=== PATIENT | male | born 1950 | race Caucasian/White ===

== ENCOUNTER 2018-08-24 13:40 | Emergency (ER) | payer OTHER, MEDICAID ==
[~2018-08-24] VITALS: Ht 152.4 cm; Wt 59.0 kg
--- NOTE | 2018-08-24 13:50 | NUR ---
PT TAKEN TO BED 3 IN WHEELCHAIR
[2018-08-24 13:52] VITALS: BP 95/62
--- NOTE | 2018-08-24 14:01 | NUR ---
68 YO M BROUGHT IN BY OPENER S/P FALL FROM BED THIS MORNING; LEFT EYE ECCHYMOSIS AND UPPER LIP SWELLING. NO BLEEDING NOTED. DETENTION WANTED HIM TO HAVE A MEDICAL EVALUATION. NO EYE INJURY NOTED, NO HYPHEMA NOTED, OR GLOBAL INJURY. NO TOOTH INJURY. NO LOC. NO N/V. NEURO TO PT BASELINE, AWAKE AND ALERT. RR EVEN AND UNLABORED, LUNGS BL CLEAR. ABD SOFT, NON-TENDER. BOWEL SOUNDS ACTIVE X 4. PT IN WHEELCHAIR. CAREGIVER AT BEDSIDE. ER MD NOTIFIED OF PT STATUS. PT NEEDS MET, SAFETY PRECAUTIONS IN PLACE. WILL CONTINUE TO MONITOR.
[2018-08-24 15:24] VITALS: BP 95/62
--- NOTE | 2018-08-24 15:25 | NUR ---
Patient discharged with v/s stable. Written and verbal after care instructions given and explained. Patient alert, oriented and verbalized understanding of instructions. Wheel Chair Assisted with to car. All questions addressed prior to discharge. ID band removed. Patient advised to follow up with PMD. Rx of MOTRIN given. Patient educated on indication of medication including possible reaction and side effects. Opportunity to ask questions provided and answered.
== END 2018-08-24 15:25 | disposition home or self-care (01) ==
LOC: MED 13:40
DX: S00.12XA Contusion of left eyelid and periocular area, initial encounter (principal); S00.531A Contusion of lip, initial encounter; K21.9 Gastro-esophageal reflux disease without esophagitis; I10 Essential (primary) hypertension; Z90.49 Acquired absence of other specified parts of digestive tract; W18.30XA Fall on same level, unspecified, initial encounter; Y93.89 Activity, other specified; Y92.89 Other specified places as the place of occurrence of the external cause; Y99.8 Other external cause status
CPT/HCPCS: 99282

== ENCOUNTER 2019-04-07 10:36 | Inpatient (IN) | payer OTHER, MEDICAID ==
[~2019-04-07] VITALS: Ht 157.5 cm; Wt 65.8 kg
[2019-04-07 10:43] VITALS: BP 101/58
--- NOTE | 2019-04-07 10:50 | NUR ---
BIB CAREGIVER FROM [facility] WITH. PT IS HERE FOR WOUND CHECK TO BACK OF RIGHT THIGH. PER CAREGIVER, PT'S WOUND STARTED A PIMPLE TYPE SIZE X3 WEEKS AGO, PT HAS A DAILY WOUND CARE AT THE FACILITY AND PT WAS ON ANTIBIOTIC THERAPY, KEFLEX 500 MG Q8 X 7 DAYS (STARTED ON: 03/17/2019). PT WOUND IS APPROX 1.0 INCH X 1 INCH X0.3 INCH, PINK AND SOME SLOUGH NOTED TO WOUND BASE, ERYTHEMA NOTED TO PERIWOUND, NO DRAINAGE NO FOUL ODOR NOTED. ER TO EVALUATE PT.
--- NOTE | 2019-04-07 10:50 | NUR ---
Patient ambulated to bed 2. RN evaluating patient at bedside.
--- NOTE | 2019-04-07 11:00 | NUR ---
DR FAJARDO AT BEDSIDE FOR PT EVALUATION
--- NOTE | 2019-04-07 12:29 | NUR ---
Wound care nurse at bedside.
--- NOTE | 2019-04-07 12:47 | NUR ---
PER 'S REQUEST WOUND EVALUATION DONE TO RIGHT POSTERIOT THIGHT. HX OBTAINED FROM [facility] RN THAT PT HAS ABSCESS WITH S/P I&D 04/06/2019 BY FACILITY WOUND CARE DOCTOR WHO VISIT WEEKLY, ACCORDING TO JENNIFER WHO IS THE CRISIS INTERVENTION COUNSELOR AT BEDSIDE AT THIS TIME THAT NO ONE IS AVAILABLE TO PROVIDE WOUND CARE AT FACILITY DAILY. ALL ABOVE INFORMATION DISCUSSED WITH DR. CLARKE WITH RECOMMENDATIONS GIVEN. -RIGHT POSTERIOR THIGH SURGICAL WOUND S/P I&D 3X3.5X0.3CM WITH UNDERMINING FROM 2 O'CLOCK TO 5 O'CLOCK, WOUND BED IS 100% GRANULATING WITH WOUND EDGE 10% LIGHT YELLOW SLOUGH, MOIST NO ODOR, SONNY-WOUND SKIN INTACT. NO PAIN RECOMMENDATIONS: -CLEANSE RIGHT POSTERIOR THIGH SURGICAL WOUND WITH NS. PAT DRY, PACK WOUND WITH THERAHONEY DRESSING COVER WITH DRY DRESSING QD AND PRN IF SOILING. -KEEP AREA DRY AND CLEAN -MAY HAVE BUS TRANSPORTATION MANAGER TO ASSIST OUT PATIENT CLINIC FOR DAILY WOUND CARE.
--- NOTE | 2019-04-07 13:00 | NUR ---
PT CONVERSATING APPROPRIATELY. NO SIGNS AND SYMPTOMS OF DISTRESS NOTED. EVEN AND UNLABORED BREATHING. CAREGIVERS AT BEDSIDE
[2019-04-07] MEDS ORDERED: POTA8TER12 PO (13:46)
[2019-04-07] MEDS ORDERED: FOLI1TAB90 PO (13:46)
[2019-04-07] MEDS ORDERED: LISI5TAB18 PO (13:46)
[2019-04-07] MEDS ORDERED: CHOL400T7 PO (13:46)
[2019-04-07] MEDS ORDERED: MULT-405 PO (13:46)
[2019-04-07] MEDS ORDERED: ZAR2.5 PO (13:46)
[2019-04-07] MEDS ORDERED: CARB15DR61 OT (13:46)
[2019-04-07] MEDS ORDERED: CHLO1SOL1 XX (13:46)
[2019-04-07] MEDS ORDERED: [UNRECOGNIZED DRUG - CODE] PO (13:46)
[2019-04-07] MEDS ORDERED: SYN.05 PO (13:46)
[2019-04-07] MEDS ORDERED: ALEN70TA9 PO (13:46)
[2019-04-07] MEDS ORDERED: BUME1TAB92 PO (13:46)
[2019-04-07] MEDS ORDERED: OMEP20TC12 PO (13:46)
[2019-04-07] MEDS ORDERED: BACL10TA4 PO (13:46)
[2019-04-07] MEDS ORDERED: CALC-577 PO (13:46)
[2019-04-07] MEDS ORDERED: PHEN-1438 PO (13:46)
[2019-04-07] MEDS ORDERED: ORE25 PO (13:46)
[2019-04-07] MEDS ORDERED: PB97.2 PO (13:46)
[2019-04-07] MEDS ORDERED: BISA-246 RC (13:51)
[2019-04-07] MEDS ORDERED: IBUP-1842 PO (13:51)
[2019-04-07] MEDS ORDERED: MAGN400S60 PO (13:51)
[2019-04-07] MEDS ORDERED: NA P133E RC (13:51)
[2019-04-07] MEDS ORDERED: MYCC TP (13:51)
[2019-04-07] MEDS ORDERED: CARB15SO23 OP (13:51)
[2019-04-07] MEDS ORDERED: ACET-2619 PO (13:53)
[2019-04-07] MEDS ORDERED: DEXT118S47 PO (13:53)
[2019-04-07] MEDS ORDERED: DEXT 5% /NACL 0.9% 1,000 ML IV SCH (13:56)
--- NOTE | 2019-04-07 14:00 | NUR ---
PT FULL CLEAR SPEECH. CONVERSATING APPROPRIATELY. EVEN AND UNLABORED BREATHING. CAREGIVERS AT BEDSIDE
[2019-04-07 14:34] LABS: BASOPHILS # (AUTO) 0.1 K/uL (0.00-0.22); BASOPHILS % (AUTO) 0.7 % (0.0-2.0); EOSINOPHILS # (AUTO) 0.3 K/uL (0-0.4); EOSINOPHILS % (AUTO) 3.8 % (0.0-4.0); HEMATOCRIT 34.6 % (36-52); HEMOGLOBIN 11.7 g/dL (12.0-18.0); LYMPHOCYTES # (AUTO) 3.2 K/uL (2.0-11.5); LYMPHOCYTES % (AUTO) 35.6 % (20.5-51.1); MEAN CORPUSCULAR HEMOGLOBIN 33 pg (27-31); MEAN CORPUSCULAR HGB CONC 34 g/dL (33-37); MONOCYTES # (AUTO) 0.8 K/uL (0.8-1.0); MONOCYTES % (AUTO) 9.1 % (1.7-9.3); NEUTROPHILS # (AUTO) 4.6 K/uL (1.8-7.7); NEUTROPHILS % (AUTO) 50.8 % (42.2-75.2); PLATELET COUNT (AUTO) 443 K/uL (140-450); RED BLOOD CELL COUNT(AUTO) 3.53 MIL/uL (4.20-6.10); RED CELL DISTRIBUTION WIDTH 12.7 % (11.6-13.7)
--- NOTE | 2019-04-07 14:40 | NUR ---
Patient will be admitted to care of DR FOSS. Admited to MED SURG. Will go to room 110 B. Belongings list completed. Report to ESTHER SHETTY.
[2019-04-07 14:56] LABS: ALBUMIN 3.7 g/dL (3.4-5.0); ANION GAP 9.3 (8-16); CARBON DIOXIDE 33.3 mmol/L (21-32); CREATININE 1.7 mg/dL (0.7-1.3); POTASSIUM 3.6 mmol/L (3.5-5.1); TOTAL BILIRUBIN 0.3 mg/dL (0.0-1.0)
[2019-04-07 15:00] VITALS: BP 95/60
[2019-04-07 15:00] LABS: PROTHROMBIN TIME 9.7 secs (10.8-13.4)
[2019-04-07 15:06] LABS: CHOL/HDL RATIO 3.5 (1-4.5); FREE T4 (FREE THYROXINE) 0.83 ng/dL (0.76-1.46); THYROID STIMULATING HORMONE 1.9 uIU/mL (0.34-3.74)
--- NOTE | 2019-04-07 15:15 | NUR ---
RECEIVED PT FROM SENA, WHO GOT REPORT FROM THE ER NURSE. PT IS AWAKE BUT CONFUSED, TALKING A LOT BUT NOT MAKING MUCH SENSE; LEAD REFINERY SUPERVISOR IS AT BEDSIDE. PT IS ON ROOM AIR, NO S/S OF ACUTE DISTRESS. ABCESS WOUND NOTED ON THE BACK OF THE R THIGH, DR LANZA IS AT BEDSIDE TALKING WITH PT AND LEAD REFINERY SUPERVISOR. HE WILL ORDER A WOUND CARE EVAL AND SURGERY EVAL WITH DR FULTON. PT'S BLE'S ARE EDEMATOUS, NON-PITTING. MRSA NASAL SWAB TAKEN. FALL PRECAUTIONS ARE IN PLACE, CALL LIGHT WITHIN REACH. SEIZURE PRECAUTIONS IN PLACE. WILL CONTINUE TO MONITOR.
[2019-04-07 15:59] LABS: MAGNESIUM 2.4 mg/dL (1.8-2.4)
[2019-04-07] MEDS: NACL 0.9% 1,000 ML IV SCH (17:38)
[2019-04-07] MEDS ORDERED: NACL 0.9% 500 ML IV ONE (18:00)
--- NOTE | 2019-04-07 19:20 | NUR ---
ENDORSED PT TO FINGER WAVER NURSE IN STABLE CONDITION.
--- NOTE | 2019-04-07 19:30 | NUR ---
Patient's Plan of Care was discussed and reviewed with ROCKET MOTOR MECHANIC: JASMYNE
[2019-04-07 20:00] VITALS: BP 115/54
--- NOTE | 2019-04-07 20:30 | NUR ---
AWAKE IN BED, TALKING TO SELF.
[2019-04-07] MEDS: AMPICILLIN/SULBACTAM 1.5 GM in NACL 0.9% 50 ML IV SCH (21:40)
[2019-04-07] MEDS ORDERED: AMPICILLIN/SULBACTAM 1.5 GM VIAL ONE (22:16)
--- NOTE | 2019-04-07 23:00 | NUR ---
AWAKE, TALKING TO NOBODY. NO ATTEMPT TO GET OUT OF BED.
--- NOTE | 2019-04-08 01:00 | NUR ---
CLEANSED WOUND WITH NS PAT DRY AND APPLIED GAUZE DRESSING.
[2019-04-08] MEDS ORDERED: MELATONIN 3 MG TAB PO PRN (01:35)
--- NOTE | 2019-04-08 02:20 | NUR ---
UNABLE TO SLEEP, MEDICATED WITH MELATONIN ORDERED.
--- NOTE | 2019-04-08 03:20 | NUR ---
SLEEPING COMFORTABLY IN BED.
[2019-04-08 04:00] VITALS: BP 98/55
[2019-04-08] MEDS: NACL 0.9% 1,000 ML IV SCH ×2 (05:35→16:39)
[2019-04-08] MEDS: AMPICILLIN/SULBACTAM 1.5 GM in NACL 0.9% 50 ML IV SCH ×3 (05:38→21:30)
[2019-04-08 06:11] LABS: T4 (THYROXINE) 6.5 ug/dL (4.5-12.0)
--- NOTE | 2019-04-08 07:00 | NUR ---
STILL SLEEPING IN BED, CONDITION REMAIN STABLE. WILL ENDORSED TO AM NURSE FOR CONTINUITY OF CARE.
--- NOTE | 2019-04-08 07:15 | NUR ---
RECEIVED BEDSIDE REPORT FROM AREA OPERATIONS DIRECTOR NURSE. PATIENT IS AWAKE AND RESTING ON BED AT THIS TIME. PATIENT IS AAOX1. RESPIRATION EVEN AND UNLABORED ON RA. FLACC 0. NO SIGNS OF DISTRESS NOTED. IV ON RAC 20, CLEAN AND DRY, INFUSING PER MD ORDER. WOUND ON RIGHT POSTERIOR THIGH NOTED, DRESSING CLEAN AND DRY. PATIENT IS INCONTINENT AND ON FALL PRECAUTION, BED ALARM ACTIVATED. SEIZURE PRECAUTION AND ASPIRATION PRECAUTION IN PLACE. SAFETY MEASURES IN PLACE. BED IN LOW POSITION AND CALL LIGHT WITHIN REACH.
[2019-04-08] MEDS: LEVOTHYROXINE 0.025 MG TAB PO SCH (07:23)
[2019-04-08 07:34] LABS: ANION GAP 11.9 (8-16); CREATININE 1.3 mg/dL (0.7-1.3); POTASSIUM 3.9 mmol/L (3.5-5.1)
[2019-04-08 07:37] LABS: BASOPHILS # (AUTO) 0.1 K/uL (0.00-0.22); BASOPHILS % (AUTO) 0.8 % (0.0-2.0); EOSINOPHILS # (AUTO) 0.4 K/uL (0-0.4); HEMOGLOBIN 11.1 g/dL (12.0-18.0); LYMPHOCYTES # (AUTO) 2.8 K/uL (2.0-11.5); LYMPHOCYTES % (AUTO) 41.2 % (20.5-51.1); MEAN CORPUSCULAR HEMOGLOBIN 34 pg (27-31); MEAN CORPUSCULAR HGB CONC 35 g/dL (33-37); MEAN CORPUSCULAR VOLUME 97.5 fL (80-94); MONOCYTES # (AUTO) 0.7 K/uL (0.8-1.0); NEUTROPHILS # (AUTO) 2.9 K/uL (1.8-7.7); PLATELET COUNT (AUTO) 405 K/uL (140-450); RED BLOOD CELL COUNT(AUTO) 3.29 MIL/uL (4.20-6.10); RED CELL DISTRIBUTION WIDTH 12.6 % (11.6-13.7); WHITE BLOOD COUNT (AUTO) 6.9 K/uL (4.8-10.8)
[2019-04-08 08:00] VITALS: BP 97/65
[2019-04-08] MEDS ORDERED: PHENobarbital 30 MG TAB PO SCH (09:00)
--- NOTE | 2019-04-08 09:11 | NUR ---
PATIENT HAS BEEN SCREENED AND CATEGORIZED HIGH NUTRITION RISK. PATIENT WILL BE SEEN WITHIN 1-2 DAYS OF ADMISSION. 04/08/19-04/09/[address]
[2019-04-08 09:12] LABS: TRANSFERRIN 218 mg/dL (200-370)
[2019-04-08] MEDS: PHENobarbital 30 MG TAB PO SCH (09:27)
[2019-04-08] MEDS: PANTOPRAZOLE 40 MG TABEC PO SCH (09:27)
--- NOTE | 2019-04-08 09:30 | NUR ---
DR BLAIR IS TALKING TO PATIENT AND CONSERVATOR YAZAN AT BEDSIDE. PATIENT AWAKE AND SITTING UP ON BED AT THIS TIME. ADMINISTERED MEDS PER MD ORDER, PATIENT TOLERATED WELL. NO SIGNS OF DISTRESS NOTED. SAFETY MEASURES IN PLACE. BED IN LOW POSITION AND CALL LIGHT WITHIN REACH. INSTRUCTED PATIENT TO USE THE CALL LIGHT FOR ANY ASSISTANCE AND PATIENT WAS AWARE.
--- NOTE | 2019-04-08 10:09 | NUR ---
COLLECTED URINE SPECIMEN VIA VOID PER MD ORDER AND DELIVERED IT TO LAB.
--- NOTE | 2019-04-08 11:17 | NUR ---
SPOKE TO DR BLAIR AND EXPLAINED THAT PT. WAS SEEN AND EVALUATED YESTERDAY AT ED WITH RECOMMENDATIONS DR. BLAIR AGREEABLE WITH PLAN AND WILL CHECK/ENTER ORDERS. Addendum: 04/08/19 at 1617 by Karina Boles RN (Grace) -RIGHT POSTERIOR THIGH SURGICAL WOUND S/P I&D 3X3.5X0.3CM WITH UNDERMINING FROM 2 O'CLOCK TO 5 O'CLOCK, WOUND BED IS 100% GRANULATING WITH WOUND EDGE 10% LIGHT YELLOW SLOUGH, MOIST NO ODOR, SONNY-WOUND SKIN INTACT. NO PAIN RECOMMENDATIONS: -CLEANSE RIGHT POSTERIOR THIGH SURGICAL WOUND WITH NS. PAT DRY, PACK WOUND WITH THERAHONEY DRESSING COVER WITH DRY DRESSING QD AND PRN IF SOILING. -KEEP AREA DRY AND CLEAN -MAY HAVE FREIGHT DELIVERY DRIVER TO ASSIST OUT PATIENT CLINIC FOR DAILY WOUND CARE.
--- NOTE | 2019-04-08 11:34 | NUR ---
PATIENT AWAKE AND WATCHING TV ON BED. DENIED PAIN AND SOB. NO SIGNS OF DISTRESS NOTED. SAFETY MEASURES IN PLACE. BED IN LOW POSITION AND CALL LIGHT WITHIN REACH. INSTRUCTED PATIENT TO USE THE CALL LIGHT FOR ANY ASSISTANCE AND PATIENT WAS AWARE.
[2019-04-08 12:00] VITALS: BP 112/59
[2019-04-08 12:01] LABS: APPEARANCE,URINE CLEAR (CLEAR); BILIRUBIN,URINE NEGATIVE (NEGATIVE); BLOOD, URINE NEGATIVE (NEGATIVE); COLOR,URINE YELLOW (YELLOW); LEUKOCYTE ESTERASE ,URINE NEGATIVE (NEGATIVE); NITRITE, URINE NEGATIVE (NEGATIVE); PH,URINE 8.5 (5.0-9.0); UGLUCOSE NEGATIVE (NEGATIVE)
[2019-04-08 12:09] LABS: FERRITIN 339 ng/mL (30-400); FOLIC ACID > 20.00 ng/mL (>3.0)
[2019-04-08] MEDS: THERAHONEY WOUND DRESSING TP SCH (12:10)
[2019-04-08 12:25] LABS: RBC,URINE 0-5 /HPF (0-5); WBC,URINE 0-5 /HPF (0-5)
[2019-04-08 12:50] LABS: BARBITURATE, URINE POS. ng/ml (NEG <=200); BENZODIAZEPINE, URINE NEG. ng/mL (NEG <=200); CANNABINOID, URINE NEG. ng/mL (NEG <=50); COCAINE, URINE NEG. ng/mL (NEG <=300); OPIATE, URINE NEG. ng/mL (NEG <=2000); PHENCYCLIDINE SCREEN,URINE NEG. ng/mL (NEG <=25)
--- NOTE | 2019-04-08 13:13 | NUR ---
PATIENT AWAKE AND TALKING TO SISTER WILLIAM AT BEDSIDE. NO SIGNS OF DISTRESS NOTED. SAFETY MEASURES IN PLACE. BED IN LOW POSITION AND CALL LIGHT WITHIN REACH. BED ALARM ACTIVATED. INSTRUCTED PATIENT TO USE THE CALL LIGHT FOR ANY ASSISTANCE AND PATIENT WAS AWARE.
--- NOTE | 2019-04-08 15:18 | NUR ---
04/08/19 RD INITIAL ASSESSMENT COMPLETED PLEASE REFER TO NUTRITION ASSESSMENT UNDER CARE ACTIVITY FOR ESTIMATED NUTRITIONAL NEEDS. 1. CONTINUE CCHO 45 GM, CARDIAC DIET, PROSOURCE BID DIET TOLERATED 2. RD TO FOLLOW-UP 2-3 DAYS, HIGH RISK TORITO SANCHEZ, RD
--- NOTE | 2019-04-08 15:35 | NUR ---
PATIENT IS AWAKE AND TALKING TO VISITORS AT BEDSIDE. NO SIGNS OF DISTRESS NOTED. SAFETY MEASURES IN PLACE. BED IN LOW POSITION AND CALL LIGHT WITHIN REACH. INSTRUCTED PATIENT AND VISITOR TO USE THE CALL LIGHT FOR ANY ASSISTANCE AND ALL WAS AWARE.
--- NOTE | 2019-04-08 16:07 | NUR ---
HADLEY, NEXT OF KIN, VISITED AT BED SIDE, PER HADLEY SHE SAID SHE IS PT'S CONSERVATOR, REQUEST TO SEE WOUND CARE. PRIMARY RN AND WOUND CARE NURSE ASSIST WITH PT WITH WOUND CARE PROVIDED AND ALL QUESTIONS ANSWERED, HADLEY WISHES TO HAVE THE HOME HEALTH AGENT TO FOLLOW PT. AT HOME, EXPLAIN TO HADLEY WOUND CARE PROCEDURES AND FREQUENCY. ALSO, INFORM HADLEY TO SPEAK TO HUMAN RESOURCES PROFESSIONAL R/T DISCHARGED PLANNING.
--- NOTE | 2019-04-08 17:40 | NUR ---
PATIENT AWAKE AND SITTING UP ON BED. DENIED PAIN. NO SIGNS OF DISTRESS NOTED. SAFETY MEASURES IN PLACE. BED IN LOW POSITION AND CALL LIGHT WITHIN REACH. INSTRUCTED PATIENT TO USE THE CALL LIGHT FOR ANY ASSISTANCE AND PATIENT WAS AWARE.
--- NOTE | 2019-04-08 19:08 | NUR ---
ENDORSED PATIENT AT BEDSIDE TO CUTTER MACHINE TENDER NURSE FOR CONTINUITY OF CARE. PATIENT IS AWAKE AND SITTING UP ON BED. NO SIGNS OF DISTRESS NOTED. SAFETY MEASURES IN PLACE. BED ALARM ACTIVATED.
--- NOTE | 2019-04-08 19:10 | NUR ---
Received endorsement from AM shift RN; A/Wolfgang1, unable to make needs known, non-ambulatory. Introduced self, updated board. No SOB or distress noted, on room air. IV site on right antecubital, 20 gauge, running IVF at 100mL/hr. Wound noted on right posterior thigh. Bed in the lowest position, call light within reach. Initial assessment done. Will continue to monitor.
--- NOTE | 2019-04-08 21:25 | NUR ---
Due meds given, tolerated well.
--- NOTE | 2019-04-08 22:15 | NUR ---
Dr. Barrientos at bedside at this time to assess wound on right posterior thigh.
--- NOTE | 2019-04-08 23:45 | NUR ---
Vitals taken , no distress noted.
[2019-04-09] VITALS: BP 109/66
[2019-04-09] MEDS: NACL 0.9% 1,000 ML IV SCH ×2 (01:24→13:47)
--- NOTE | 2019-04-09 01:58 | NUR ---
Rounds done; no SOB or distress noted.
[2019-04-09] MEDS: AMPICILLIN/SULBACTAM 1.5 GM in NACL 0.9% 50 ML IV SCH ×3 (04:11→20:50)
--- NOTE | 2019-04-09 04:30 | NUR ---
Rounds done; no distress noted. Patient asleep, eyes closed, visible chest rise and fall noted.
[2019-04-09] MEDS: LEVOTHYROXINE 0.025 MG TAB PO SCH (05:39)
--- NOTE | 2019-04-09 06:00 | NUR ---
Due meds given, no distress noted.
[2019-04-09 07:14] LABS: ANION GAP 12.7 (8-16); CARBON DIOXIDE 26.4 mmol/L (21-32); POTASSIUM 4.1 mmol/L (3.5-5.1)
[2019-04-09 07:21] LABS: MAGNESIUM 1.8 mg/dL (1.8-2.4); PHOSPHORUS 2.1 mg/dL (2.5-4.9)
--- NOTE | 2019-04-09 07:25 | NUR ---
Endorsed patient to AM shift RN for continuity of care; patient in stable condition.
--- NOTE | 2019-04-09 07:27 | NUR ---
RECEIVED REPORT FROM NIGHT RN. PT RESTING IN BED. AOOX1, NO S/S OF ACUTE DISTRESS. PT DENIES PAIN. FLACC-0. IV SITE PATENT AND INTACT. CALL LIGHT WITHIN REACH. SAFETY MEASURES ENSURED. WILL CONTINUE TO MONITOR.
[2019-04-09 07:38] LABS: BASOPHILS # (AUTO) 0.1 K/uL (0.00-0.22); BASOPHILS % (AUTO) 0.6 % (0.0-2.0); EOSINOPHILS # (AUTO) 0.4 K/uL (0-0.4); HEMATOCRIT 31.6 % (36-52); HEMOGLOBIN 10.9 g/dL (12.0-18.0); LYMPHOCYTES # (AUTO) 2.6 K/uL (2.0-11.5); LYMPHOCYTES % (AUTO) 29.8 % (20.5-51.1); MEAN CORPUSCULAR HEMOGLOBIN 34 pg (27-31); MEAN CORPUSCULAR HGB CONC 34 g/dL (33-37); MEAN CORPUSCULAR VOLUME 98.4 fL (80-94); MONOCYTES # (AUTO) 0.7 K/uL (0.8-1.0); MONOCYTES % (AUTO) 7.8 % (1.7-9.3); NEUTROPHILS # (AUTO) 5.1 K/uL (1.8-7.7); NEUTROPHILS % (AUTO) 57.8 % (42.2-75.2); PLATELET COUNT (AUTO) 390 K/uL (140-450); RED BLOOD CELL COUNT(AUTO) 3.21 MIL/uL (4.20-6.10); RED CELL DISTRIBUTION WIDTH 12.6 % (11.6-13.7); WHITE BLOOD COUNT (AUTO) 8.9 K/uL (4.8-10.8)
[2019-04-09 08:00] VITALS: BP 128/79
[2019-04-09] MEDS: SODIUM PHOS / POTASSIUM PHOS 1 PKT PDR PO SCH ×2 (09:05→20:50)
[2019-04-09] MEDS: PANTOPRAZOLE 40 MG TABEC PO SCH (09:06)
[2019-04-09] MEDS: THERAHONEY WOUND DRESSING TP SCH (09:06)
[2019-04-09] MEDS: PHENobarbital 30 MG TAB PO SCH (09:06)
--- NOTE | 2019-04-09 11:39 | NUR ---
PT RESTING IN BED. NO S/S OF ACUTE DISTRESS. FLACC-0. IV SITE PATENT AND INTACT. CALL LIGHT WITHIN REACH. SAFETY MEASURES ENSURED. WILL CONTINUE TO MONITOR.
--- NOTE | 2019-04-09 14:41 | NUR ---
CALLED BHARAT AT [facility] [phone] NOTIFIED HER REGARDING THE D/C PLAN WITH HOME HEALTH FOR PT. PER BHARAT ,SHE IS NOT HANDLING D/C PLANNING AND PROVIDED THE CONTACT # FOR D/C REFRIGERATOR ROOM CLERK HUBERT [phone] . I CALLED HUBERT SHE IS AT LUNCH AT THIS TIME AND LEFT A MESSAGE . Addendum: 04/09/19 at 1458 by Yessi Larkin CM WRONG PATIENT
--- NOTE | 2019-04-09 14:58 | NUR ---
CALLED [facility] [phone] SPOKE WITH LALITHA COPY HOLDER REGARDING THE D/C PLANNING FOR 04/11 PER LALITHA WILL ACCEPT PT AND WILL BE RESPONSIBLE FOR TRANSPORT WELL.
[2019-04-09 16:00] VITALS: BP 138/89
--- NOTE | 2019-04-09 16:20 | NUR ---
PATIENT'S FAMILY STATES HE HAD SEIZURE LIKE ACTIVITY WITH TWITCHING OF THE LEFT HAND AND SMACKING OF THE LIPS. DR. BLAIR MADE AWARE.
--- NOTE | 2019-04-09 16:25 | NUR ---
PT RESTING IN BED. NO S/S OF ACUTE DISTRESS. PT DENIES PAIN. CALL LIGHT WITHIN REACH. SAFETY MEASURES ENSURED. WILL CONTINUE TO MONITOR.
--- NOTE | 2019-04-09 19:20 | NUR ---
RECEIVED BEDSIDE REPORT FROM DAY SHIFT NURSE. PATIENT IS AWAKE AND COOPERATIVE. RESPIRATION EVEN UNLABORED ON ROOM AIR. NO DISTRESS NOTED. SKIN IS WARM AND DRY. RIGHT POSTERIOR THIGH ABSCESS NOTED. DRESSING IN PLACE AND NO DRAINAGE NOTED. IV PATENT AND INTACT. ALL SAFETY MEASURES IN PLACE. SEIZURE PRECAUTION AND FALL RISK PRECAUTION IN PLACE. PLAN OF CARE WAS DISCUSSED. CALL LIGHT WITHIN REACH. WILL CONTINUE TO MONITOR.
--- NOTE | 2019-04-09 20:00 | NUR ---
INITIAL ASSESSMENT DONE. VITALS WERE TAKEN. PATIENT IN CONDITION STABLE. NO DISTRESS NOTED. WILL CONTINUE TO MONITOR.
--- NOTE | 2019-04-09 21:00 | NUR ---
ALL SCHEDULED MEDS WERE GIVEN PER ORDER. NO ASE NOTED. WILL CONTINUE TO MONITOR.
--- NOTE | 2019-04-09 22:00 | NUR ---
GAVE PATIENT GOOD PERICARE AND CHANGED SOILED LINEN. PATIENT IN STABLE CONDITION. WILL CONTINUE TO MONITOR.
[2019-04-10] VITALS: BP 111/69
--- NOTE | 2019-04-10 | NUR ---
VITALS WERE TAKEN. PATIENT IN STABLE CONDITION. NO DISTRESS NOTED. WILL CONTINUE TO MONITOR.
[2019-04-10] MEDS: NACL 0.9% 1,000 ML IV SCH ×2 (00:41→23:57)
--- NOTE | 2019-04-10 02:00 | NUR ---
CHECKED PATIENT. PATIENT SLEEPING RESPIRATION EVEN UNLABORED ON ROOM AIR. NO DISTRESS NOTED. WILL CONTINUE TO MONITOR.
--- NOTE | 2019-04-10 04:00 | NUR ---
CHECKED PATIENT. PATIENT SLEEPING RESPIRATION EVEN UNLABORED ON ROOM AIR. NO DISTRESS NOTED, WILL CONTINUE TO MONITOR.
[2019-04-10] MEDS: AMPICILLIN/SULBACTAM 1.5 GM in NACL 0.9% 50 ML IV SCH ×3 (04:19→21:25)
[2019-04-10] MEDS: LEVOTHYROXINE 0.025 MG TAB PO SCH (05:54)
--- NOTE | 2019-04-10 07:11 | NUR ---
ENDORSED PATIENT TO DAY SHIFT NURSE FOR CONTINUITY OF CARE. PATIENT IN STABLE CONDITION.
--- NOTE | 2019-04-10 07:12 | NUR ---
RECEIVED BEDSIDE REPORT FROM WORD PROCESSING SUPERVISOR NURSE. PATIENT IS AWAKE, ALERT AND ORIENTEDX1. NO SIGNS OF DISTRESS ON RA. SKIN HAS R THIGH WOUND, DRESSING IS CLEAN, DRY AND INTACT. IV ON R AC 20G INFUSING NS AT 100. CLEAN, DRY AND INTACT. PATIENT IS INCONTINENT. BEDBOUND. FALL RISK PROTOCOL IN PLACE. SEIZURE PRECAUTIONS IN PLACE. BED IN LOW POSITION. CALL LIGHT WITHIN REACH. WILL CONTINUE TO MONITOR THE PATIENT.
[2019-04-10 07:17] LABS: BASOPHILS # (AUTO) 0.1 K/uL (0.00-0.22); BASOPHILS % (AUTO) 0.5 % (0.0-2.0); EOSINOPHILS % (AUTO) 0.3 % (0.0-4.0); HEMATOCRIT 31.2 % (36-52); HEMOGLOBIN 10.7 g/dL (12.0-18.0); LYMPHOCYTES # (AUTO) 1.8 K/uL (2.0-11.5); LYMPHOCYTES % (AUTO) 14.3 % (20.5-51.1); MEAN CORPUSCULAR HEMOGLOBIN 34 pg (27-31); MEAN CORPUSCULAR HGB CONC 34 g/dL (33-37); MEAN CORPUSCULAR VOLUME 97.9 fL (80-94); MONOCYTES # (AUTO) 1.1 K/uL (0.8-1.0); MONOCYTES % (AUTO) 8.6 % (1.7-9.3); NEUTROPHILS # (AUTO) 9.8 K/uL (1.8-7.7); NEUTROPHILS % (AUTO) 76.3 % (42.2-75.2); PLATELET COUNT (AUTO) 371 K/uL (140-450); RED BLOOD CELL COUNT(AUTO) 3.18 MIL/uL (4.20-6.10); RED CELL DISTRIBUTION WIDTH 12.6 % (11.6-13.7); WHITE BLOOD COUNT (AUTO) 12.8 K/uL (4.8-10.8)
[2019-04-10 07:32] LABS: ANION GAP 13.8 (8-16); CARBON DIOXIDE 25.7 mmol/L (21-32); POTASSIUM 3.5 mmol/L (3.5-5.1)
[2019-04-10 07:39] LABS: MAGNESIUM 1.6 mg/dL (1.8-2.4); PHOSPHORUS 2.3 mg/dL (2.5-4.9)
[2019-04-10 08:00] VITALS: BP 130/60
[2019-04-10] MEDS ORDERED: MAG SULF 2000 MG/WATER PREMIX 50 ML IV SCH (09:30)
[2019-04-10] MEDS: SODIUM PHOS / POTASSIUM PHOS 1 PKT PDR PO SCH ×2 (09:44→21:24)
[2019-04-10] MEDS: PANTOPRAZOLE 40 MG TABEC PO SCH (09:45)
[2019-04-10] MEDS: PHENobarbital 30 MG TAB PO SCH (09:45)
[2019-04-10] MEDS: THERAHONEY WOUND DRESSING TP SCH (09:52)
--- NOTE | 2019-04-10 09:59 | NUR ---
PATIENT HAD A 20 SEC SEIZURE. FAMILY AND DR BLAIR AT BEDSIDE. CT SCAN CALLED TO COME GET THE PATIENT. B/P 146/73 HR 95
--- NOTE | 2019-04-10 11:00 | NUR ---
PATIENTS SISTER AT BEDSIDE. NO SIGNS OF DISTRESS. WILL CONTINUE TO MONITOR THE PATIENT
--- NOTE | 2019-04-10 11:24 | NUR ---
LALITHA FROM [facility] ARRANGED TRANSPORT WITH [facility] [phone] MANAGER PROCESS TIME BETWEEN 2-3 AND PT CAN GO TO ROOM 23
--- NOTE | 2019-04-10 13:00 | NUR ---
PATIENT EATING LUNCH. NO SIGNS OF DISTRESS. SISTER FEEDING THE PATIENT. WILL CONTINUE TO MONITOR THE PATIENT.
[2019-04-10] MEDS ORDERED: HYDROcodone/APAP 5/325 MG 1 TAB TAB PO PRN (13:20)
[2019-04-10] MEDS ORDERED: PHENobarbital 130 MG/ML VIAL IV SCH (14:30)
--- NOTE | 2019-04-10 15:33 | NUR ---
ADMINISTERED [facility]. B/P 132/75 HR 83.
--- NOTE | 2019-04-10 15:45 | NUR ---
PER FAMILY PATIENT HAD A 5 SECOND SEIZURE. VITALS ARE STABLE
[2019-04-10 16:00] VITALS: BP 136/64
--- NOTE | 2019-04-10 17:00 | NUR ---
PATIENT SITTING IN BED, NO SIGNS OF DISTRESS. WILL CONTINUE TO MONITOR THE PATIENT
--- NOTE | 2019-04-10 19:28 | NUR ---
GAVE BEDSIDE REPORT TO AUTOMATION SOFTWARE ENGINEER NURSE. PATIENT ENDORSED IN STABLE CONDITION. WILL CONTINUE TO MONITOR THE PATIENT
--- NOTE | 2019-04-10 20:00 | NUR ---
INITIAL ASSESSMENT DONE. VITALS WERE TAKEN. PATIENT IN STABLE CONDITION. WILL CONTINUE TO MONITOR
--- NOTE | 2019-04-10 20:30 | NUR ---
PATIENT IV INFILTRATED. NO ACTIVE BLEEDING SEEN. INSERTED NEW IV 24G RIGHT HAND.
--- NOTE | 2019-04-10 21:00 | NUR ---
ALL SCHEDULED MEDS WERE GIVEN PER ORDER. NO ASE NOTED.WILL CONTINUE TO MONITOR.
--- NOTE | 2019-04-10 22:30 | NUR ---
OFFERED PATIENT URINAL FLOYD. CHANGED AND PROVIDED GOOD PERICARE. WILL CONTINUE TO MONITOR.
[2019-04-11] VITALS: BP 138/72
--- NOTE | 2019-04-11 | NUR ---
VITALS WERE TAKEN. NO DISTRESS NOTED. PATIENT IN STABLE CONDITION. WILL CONTINUE TO MONITOR.
--- NOTE | 2019-04-11 02:00 | NUR ---
CHECKED PATIENT. PATIENT SLEEPING RESPIRATION EVEN UNLABORED ON ROOM AIR. NO DISTRESS NOTED. WILL CONTINUE TO MONITOR.
--- NOTE | 2019-04-11 04:00 | NUR ---
CHECKED PATIENT. PATIENT SLEEPING RESPIRATION EVEN UNLABORED ON ROOM AIR. NO DISTRESS NOTED. WILL CONTINUE TO MONITOR.
[2019-04-11] MEDS: LEVOTHYROXINE 0.025 MG TAB PO SCH (05:35)
[2019-04-11] MEDS: AMPICILLIN/SULBACTAM 1.5 GM in NACL 0.9% 50 ML IV SCH (05:35)
[2019-04-11 05:52] LABS: BASOPHILS # (AUTO) 0.1 K/uL (0.00-0.22); BASOPHILS % (AUTO) 0.5 % (0.0-2.0); EOSINOPHILS # (AUTO) 0.4 K/uL (0-0.4); EOSINOPHILS % (AUTO) 3.3 % (0.0-4.0); HEMATOCRIT 31.4 % (36-52); HEMOGLOBIN 10.8 g/dL (12.0-18.0); LYMPHOCYTES # (AUTO) 3.3 K/uL (2.0-11.5); LYMPHOCYTES % (AUTO) 27.4 % (20.5-51.1); MEAN CORPUSCULAR HEMOGLOBIN 34 pg (27-31); MEAN CORPUSCULAR HGB CONC 34 g/dL (33-37); MEAN CORPUSCULAR VOLUME 98.3 fL (80-94); MONOCYTES % (AUTO) 8.7 % (1.7-9.3); NEUTROPHILS # (AUTO) 7.2 K/uL (1.8-7.7); NEUTROPHILS % (AUTO) 60.1 % (42.2-75.2); PLATELET COUNT (AUTO) 367 K/uL (140-450); RED BLOOD CELL COUNT(AUTO) 3.19 MIL/uL (4.20-6.10); RED CELL DISTRIBUTION WIDTH 12.6 % (11.6-13.7)
[2019-04-11 06:50] LABS: ANION GAP 11.7 (8-16); CREATININE 0.8 mg/dL (0.7-1.3); POTASSIUM 3.7 mmol/L (3.5-5.1)
[2019-04-11 06:54] LABS: MAGNESIUM 1.8 mg/dL (1.8-2.4); PHOSPHORUS 2.4 mg/dL (2.5-4.9)
--- NOTE | 2019-04-11 07:26 | NUR ---
ENDORSED PATIENT TO DAY SHIFT NURSE FOR CONTINUITY OF CARE. PATIENT IN STABLE CONDITION.
--- NOTE | 2019-04-11 07:27 | NUR ---
RECEIVED BEDSIDE REPORT FROM ESTHER BUSTAMANTE. PATIENT ON MED SURGE FLOOR WITH STANDARD PRECAUTIONS IN PLACE. PATIENT AAOX1, ON ROOM AIR, NO DISTRESS NOTED. PATIENT BEDBOUND, INCONTINENT, WITH R THIGH ABSCESS. IV ON R HAND 24G INFUSING NS AT 60, IV PATENT AND INTACT. BED IN LOW POSITION, CALL LIGHT WITHIN REACH, SIDE RAILS X2 UP
[2019-04-11 08:00] VITALS: BP 146/66
[2019-04-11] MEDS ORDERED: SODIUM PHOS / POTASSIUM PHOS 1 PKT PDR PO SCH (08:25)
[2019-04-11] MEDS ORDERED: PB97.2 PO (08:51)
[2019-04-11] MEDS ORDERED: BACL10TA4 PO (08:51)
[2019-04-11] MEDS ORDERED: AMOX-999 PO (08:54)
[2019-04-11] MEDS: PANTOPRAZOLE 40 MG TABEC PO SCH (08:57)
[2019-04-11] MEDS: SODIUM PHOS / POTASSIUM PHOS 1 PKT PDR PO SCH (09:00)
[2019-04-11] MEDS: THERAHONEY WOUND DRESSING TP SCH (09:00)
--- NOTE | 2019-04-11 09:00 | NUR ---
ADMINISTERED SCHEDULED MEDS. PATIENT TOLERATED WELL Addendum: 04/11/19 at 1002 by Josefa Ross RN DID NOT ADMINISTER SCHEDULED NEUTRA PHOS SINCE DR. ENRIQUEZ ORDERED A ONE TIME DOSE FOR 0825 TODAY, WHICH WAS GIVEN. DR. ENRIQUEZ AWARE
--- NOTE | 2019-04-11 11:29 | NUR ---
TELEPHONE REPORT GIVEN TO ROSSY FROM [facility]. SHE IS AWARE OF [place] PICKUP TIME AROUND 2-3 PM TODAY AND PT GOING TO ROOM [address] VALDOVINOS. ANSWERED ALL QUESTIONS AND CONCERNS
[2019-04-11] MEDS ORDERED: AMPICILLIN/SULBACTAM 1.5 GM in NACL 0.9% 50 ML IV SCH (13:00)
--- NOTE | 2019-04-11 14:17 | NUR ---
NOTIFIED DR. ENRIQUEZ THAT PATIENT DID NOT GET HIS SCHEDULED UNASYN TODAY SINCE HIS IV WAS PULLED OUT AND [place] [facility] IS NOW HERE. ATTEMPTED TWICE TO REINSERT NEW IV. DR. ENRIQUEZ STATED IT'S FINE SINCE HE WILL BE GETTING AMOXICILLIN PO
--- NOTE | 2019-04-11 14:20 | NUR ---
[place] [facility] HERE TRANSFERRING PATIENT TO [facility]. PNA VACCINE UP TO DATE. PICTURE TAKEN OF WOUND AND COPY IN CHART. EDUCATED PATIENT ABOUT PLAN OF TREATMENT IN [place] AND DISCUSSED NEW PRESCRIPTIONS WITH PATIENT AND SISTER, WILLIAM. WRIST BANDS REMOVED AND NO LONGER WITH IV. ANSWERED ALL QUESTIONS AND CONCERNS. ALL BELONGINGS SENT HOME WITH PATIENT. PATIENT AND SISTER, WILLIAM VERBALIZED UNDERSTANDING
== END 2019-04-11 14:20 | DRG 592 ==
LOC: MED 10:36 → MTU 14:00
PROVIDERS: ADMIT General Practice; ATTEND General Practice
DX: L89.894 Pressure ulcer of other site, stage 4 (principal); N17.0 Acute kidney failure with tubular necrosis; G93.41 Metabolic encephalopathy; L03.115 Cellulitis of right lower limb; E87.1 Hypo-osmolality and hyponatremia; L97.919 Non-pressure chronic ulcer of unspecified part of right lower leg with unspecified severity; J90 Pleural effusion, not elsewhere classified; E83.39 Other disorders of phosphorus metabolism; E83.42 Hypomagnesemia; E03.9 Hypothyroidism, unspecified; G40.909 Epilepsy, unspecified, not intractable, without status epilepticus; I10 Essential (primary) hypertension; K21.9 Gastro-esophageal reflux disease without esophagitis; M85.80 Other specified disorders of bone density and structure, unspecified site; D64.9 Anemia, unspecified; E87.8 Other disorders of electrolyte and fluid balance, not elsewhere classified; E86.0 Dehydration; R73.03 Prediabetes; E78.5 Hyperlipidemia, unspecified; Z90.49 Acquired absence of other specified parts of digestive tract; Z98.49 Cataract extraction status, unspecified eye; Z99.3 Dependence on wheelchair
CPT/HCPCS: 36415; 70450; 71045; 80048; 80053; 80184; 80305; 81001; 82150; 82607; 82728; 82746; 82948; 83036; 83540; 83690; 83735; 83880; 84100; 84436; 84439; 84443; 84479; 84484; 85025; 85045; 85610; 85730; 87081; 93005; 99285; J0295; J2560; J3475; J7030; Q0092